=== PATIENT | male | born 1980 | race Asian ===

== ENCOUNTER 2021-09-04 22:26 | Emergency (ER) | payer MEDICAID ==
[~2021-09-04] VITALS: Ht 177.8 cm; Wt 78.8 kg
[2021-09-04 22:34] VITALS: BP 191/104
[2021-09-05] MEDS ORDERED: SODIUM CHLORIDE 0.9% 1,000 ML IV ONE (08:45)
[2021-09-05] MEDS ORDERED: ASPIRIN 325MG EC TABLET PO ONE (09:00)
[2021-09-05 09:41] LABS: BASOPHILS % 0.3 % (0.0-2.0); HEMATOCRIT. 42.6 % (42.0-52.0); HEMOGLOBIN. 14.5 g/dL (14.0-18.0); LYMPHOCYTES % 23.7 % (20.0-50.0); MEAN CORPUSCULAR HEMOGLOBIN 28.3 pg (28.0-32.0); MEAN PLATELET VOLUME 7.8 fl (7.4-10.4); PLATELET 205 x1000/uL (130-400); RED BLOOD CELL COUNT 5.13 mill/uL (4.7-6.1); RED CELL DISTRIBUTION WIDTH 13.3 % (11.6-14.6)
[2021-09-05 09:49] LABS: CHLORIDE 107 mEq/L (98-107)
[2021-09-05 10:04] LABS: T4 FREE 0.92 ng/dL (0.76-1.46)
[2021-09-05 10:53] LABS: *AMPHETAMINES SCREEN URINE NEGATIVE (NEGATIVE); *BARBITURATES SCREEN URINE NEGATIVE (NEGATIVE); *BENZODIAZEPINES SCREEN URINE NEGATIVE (NEGATIVE); *COCAINE SCREEN URINE NEGATIVE (NEGATIVE); CANNABINOID URINE SCREEN NEGATIVE (NEGATIVE); METHADONE URINE SCREEN NEGATIVE (NEGATIVE); OPIATES URINE SCREEN NEGATIVE (NEGATIVE); PHENCYCLIDINE URINE SCREEN NEGATIVE (NEGATIVE)
== END 2021-09-05 12:06 | disposition home or self-care (01) ==
LOC: ER 22:26
DX: R00.0 Tachycardia, unspecified (principal); R06.02 Shortness of breath; Z88.2 Allergy status to sulfonamides
CPT/HCPCS: 36415; 71045; 80053; 80305; 83880; 84439; 84443; 84484; 85025; 85379; 93005; 96360; 99285; J7030